=== PATIENT | male | born 2000 | race African-American/Black ===

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

== ENCOUNTER 2019-06-05 01:08 | Emergency (ER) | payer MEDICAID, OTHER ==
[2019-06-05] MEDS ORDERED: IPRATROPIUM/ALBUTEROL 0.5-2.5 MG/3 ML AMPUL NEB ONE (02:29)
[2019-06-05] MEDS ORDERED: DEXAMETHASONE SOD PHOS INJ 10 MG/1 ML VIAL IM ONE (02:29)
--- NOTE | 2019-06-05 02:31 | ER Document Report ---
HPI - HPI Patient complains to provider of: shortness of breath Time Seen by Provider: 06/05/19 02:02 Pain Level: Denies Context: 18-year-old male with history of asthma presents to the emergency department with chief complaint of shortness of breath. Patient states that he has had difficulty breathing since Friday. Patient said that he would have wheezing, would use his inhaler and nebulizers, would have transient relief, and still have sensation of shortness of breath. Patient states that he recently came down with a cold. Patient denies any fevers or chills, denies any chest pain, denies any other symptoms. - EENT EENT: DENIES: Sore Throat, Ear Pain, Eye problems - NEURO Neurology: DENIES: Headache, Weakness, Vision blurred, Dizzinesss / Vertigo - CARDIOVASCULAR Cardiovascular: DENIES: Chest pain - RESPIRATORY Respiratory: REPORTS: Trouble Breathing. DENIES: Coughing - GASTROINTESTINAL Gastrointestinal: DENIES: Abdominal Pain, Black / Bloody Stools - URINARY Urinary: DENIES: Dysuria, Urgency, Frequency - REPRODUCTIVE Reproductive: DENIES: :, Postmenopausal, Abnormal bleeding / discharge - MUSCULOSKELETAL Musculoskeletal: DENIES: Extremity pain Past Medical History - Social History Smoking Status: Never Smoker Family History: Reviewed & Not Pertinent Patient has suicidal ideation: No Patient has homicidal ideation: No Pulmonary Medical History: Reports: Hx Asthma Renal/ Medical History: Denies: Hx Peritoneal Dialysis - Immunizations Immunizations up to date: Yes Hx Diphtheria, Pertussis, Tetanus Vaccination: Yes Vertical Provider Document - CONSTITUTIONAL Notes: PHYSICAL EXAMINATION: Reviewed vital signs and charting by RN GENERAL: Alert, interacts well. No acute distress. HEAD: Normocephalic, atraumatic. EYES: Pupils equal and round. Extraocular movements intact. ENT: Oral mucosa moist, tongue midline. NECK: Full range of motion. Trachea midline. LUNGS: Crackles in right upper lobe, all other lung carrion clear to auscultation. No respiratory distress. HEART: Regular rate and rhythm. No murmur ABDOMEN: soft, non-tender. No distention. Bowel sounds present EXTREMITIES: Moves all 4 extremities spontaneously. No edema, No cyanosis. PSYCH: Normal affect, normal mood. SKIN: Warm, dry, normal turgor. No rashes or lesions noted. - INFECTION CONTROL TRAVEL OUTSIDE OF THE [place] IN LAST 30 DAYS: No Course - Re-evaluation Re-evalutation: 06/05/19 03:45 Patient presents with a mild exacerbation of their baseline asthma. Mild wheezing at time of presentation but vitals do not show significant hypoxemia or tachypnea. No retractions. Patient did clinically improve after receiving nebulizers here in the emergency department. Chest x-ray without evidence of an acute pneumonia. Patient able to ambulate without any respiratory distress. Based on patient's overall reassuring assessment, I believe they are stable for outpatient management with steroids. I do not suspect an acute alternative pathology at this time based on history and exam including acute pulmonary embolus, ACS, pneumothorax, or aortic dissection. At this time will discharge with return precautions and follow-up recommendations. Verbal discharge instructions given a the bedside and opportunity for questions given. Medication warnings reviewed. Patient is in agreement with this plan and has verbalized understanding of return precautions and the need for primary care follow-up in the next 24-72 hours. - Vital Signs Vital signs: Temp Pulse Resp BP Pulse Ox 98.0 F 68 16 123/88 H 100 06/05/19 01:11 06/05/19 01:11 06/05/19 01:11 06/05/19 01:11 06/05/19 01:11 Discharge - Discharge Clinical Impression: Mild asthma exacerbation Condition: Good Disposition: HOME, SELF-CARE Additional Instructions: You were seen for an asthma exacerbation. Your symptoms improved with treatment here in the emergency department. However, it is very important that you return to the emergency department immediately if you began to have worsening difficulty breathing that does not respond to your normal home nebulizers. You are also being sent home on a five-day course of steroids that you should start taking tomorrow. Please also follow closely with your primary care physician. you should also return to emergency department if you develop fever greater than 101, persistent cough, persistent vomiting, pass out, or any other symptoms that are concerning to you.
--- NOTE | 2019-06-05 03:34 | RADIOLOGY REPORT (SQ) ---
EXAM DESCRIPTION: XR CHEST 1 VIEW COMPLETED DATE/TME: 06/05/2019 02:30 CLINICAL HISTORY: 18 years Male, crackles RUL COMPARISON:Jan 11 2016 NUMBER OF VIEWS/TECHNIQUE: 1/AP FINDINGS: Increased lung volume, clear parenchyma, normal cardiac silhouette, and intact bony thorax. IMPRESSION: No acute cardiopulmonary findings.
[2019-06-05] MEDS ORDERED: ALBUTEROL SULFATE HFA (90 MCG/PUFF) 8 GM MDI (1 MDI/ER DISP) IH ONE (03:48)
[2019-06-05 04:25] VITALS: BP 128/73
--- NOTE | 2019-06-06 10:35 | EKG REPORT ---
SEVERITY:- NORMAL ECG - SINUS RHYTHM : Confirmed by: Mirian Porter 06-Jun-2019 10:34:52
== END 2019-06-05 04:25 | disposition home or self-care (01) ==
LOC: ER 01:08
DX: J45.901 Unspecified asthma with (acute) exacerbation (principal); Z79.899 Other long term (current) drug therapy
CPT/HCPCS: 93005; 94640; 99285; 96372; 71045; 93010; J1100; J7620

== ENCOUNTER 2019-09-01 10:32 | Emergency (ER) | payer MEDICAID ==
[2019-09-01 10:46] VITALS: BP 117/89
[2019-09-01] MEDS ORDERED: DEXAMETHASONE 4 MG TABLET PO ONE (11:12)
--- NOTE | 2019-09-01 11:17 | ER Document Report ---
ED General - General Chief Complaint: Asthma Exacerbation Stated Complaint: CONGESTION/HEADACHE/ASTHMA Time Seen by Provider: 09/01/19 10:49 Notes: HPI: She has a 18-year-old male with past medical history of asthma who presents today with the onset around 3 days ago some runny nose, congestion, and a nonproductive cough. Patient has a history of asthma. He has an albuterol inhaler. Patient denies any fevers, vomiting, sore throat, difficulty swallowing, abdominal pain, or diarrhea. ROS: See HPI All other review of systems reviewed and otherwise negative Reviewed vital signs and nursing note as charted by RN. PHYSICAL EXAM: CONSTITUTIONAL: Alert and interactive with no obvious tachypnea or retractions present HEAD: Normocephalic; atraumatic EYES: PERRL; Conjunctivae clear, sclerae non-icteric ENT: Normal nose; nonpurulent nasal rhinorrhea; moist mucous membranes; pharynx without lesions noted NECK: Supple without meningismus; non-tender; no cervical lymphadenopathy, no masses CARD: Regular rate and rhythm; no murmurs; symmetric distal pulses RESP: Normal chest excursion without splinting or tachypnea; breath sounds clear and equal bilaterally; no wheezes, no rhonchi, no rales ABD: Nontender to palpation : No apparent lesions present BACK: The back appears normal EXT: Normal ROM in all joints; non-tender to palpation; no edema SKIN: No acute lesions noted NEURO: Patient moves all 4 extremities with no swelling or erythema TRAVEL OUTSIDE OF THE [place] IN LAST 30 DAYS: No - Related Data Allergies/Adverse Reactions: No Known Allergies Allergy (Verified 09/01/19 11:06) Past Medical History - Social History Smoking Status: Never Smoker Frequency of alcohol use: None Drug Abuse: None Family History: Reviewed & Not Pertinent Patient has homicidal ideation: No Pulmonary Medical History: Reports: Hx Asthma Renal/ Medical History: Denies: Hx Peritoneal Dialysis - Immunizations Immunizations up to date: Yes Hx Diphtheria, Pertussis, Tetanus Vaccination: Yes Physical Exam - Vital signs Vitals: Temp Pulse Resp BP Pulse Ox 99.4 F 89 16 117/89 H 99 09/01/19 10:45 09/01/19 10:45 09/01/19 10:45 09/01/19 10:45 09/01/19 10:45 Course - Re-evaluation Re-evalutation: 09/01/19 11:17 Given the history and physical examination in this very well-appearing male in no acute distress, with vital signs as recorded, no wheezing on exam, no calf pain or leg swelling, afebrile, with nasal congestion and cough, we will provide a dose of Decadron and obtain an x-ray of the chest as well as cover testing. Patient understand strict return precautions as well as quarantine for COVID results. Patient looks extremely well and I do not believe any duo nebulizers are necessary at this moment. Patient does have a primary care physician. 09/01/19 12:18 X-ray of the chest as recorded. Patient still looks excellent. Patient will be discharged home with strict return precautions and follow-up with the primary care physician for further assessment and treatment. Patient has his albuterol inhaler. We have provided a 10 mg dose of Decadron. COVID testing has been sent and the patient understands quarantine instructions. - Vital Signs Vital signs: Temp Pulse Resp BP Pulse Ox 99.4 F 89 16 117/89 H 99 09/01/19 10:46 09/01/19 10:45 09/01/19 10:45 09/01/19 10:45 09/01/19 10:45 Discharge - Discharge Clinical Impression: Nose congestion, Cough Condition: Good Disposition: HOME, SELF-CARE Instructions: COVID-19 Guidance for Persons Under Investigation Additional Instructions: Come back immediately for any worsening cough, chest pain, leg swelling, difficulty breathing, or any other acute problems. Please take 2 puffs of albuterol inhaler every 4 hours for the next 48 hours and every 6 hours as needed after that. Please follow-up with your primary care physician as instructed. Please make sure that you continue self until COVID testing has resulted.
[2019-09-01] MEDS ORDERED: IBUPROFEN 600 MG TABLET PO ONE (11:18)
--- NOTE | 2019-09-01 12:04 | RADIOLOGY REPORT (SQ) ---
EXAM DESCRIPTION: CHEST SINGLE VIEW IMAGES COMPLETED DATE/TIME: 09/01/2019 11:43 am REASON FOR STUDY: 36; Wheezing and cough COMPARISON: 06/05/2019 EXAM PARAMETERS: NUMBER OF VIEWS: One view. TECHNIQUE: Single frontal radiographic view of the chest acquired. RADIATION DOSE: NA LIMITATIONS: None. FINDINGS: LUNGS AND PLEURA: No opacities, masses or pneumothorax. No pleural effusion. MEDIASTINUM AND HILAR STRUCTURES: No masses. Contour normal. HEART AND VASCULAR STRUCTURES: Heart normal in size. Normal vasculature. BONES: No acute findings. HARDWARE: None in the chest. OTHER: No other significant finding. IMPRESSION: NO ACUTE RADIOGRAPHIC FINDING IN THE CHEST. TECHNICAL DOCUMENTATION: JOB ID: [id number] [employer]- All Rights Reserved Reading location - IP/workstation name: [email or web address]
== END 2019-09-01 12:28 | disposition home or self-care (01) ==
LOC: ER 10:32
DX: R09.81 Nasal congestion (principal); R05 Cough; R51 Headache; J45.909 Unspecified asthma, uncomplicated; Z20.828 Contact with and (suspected) exposure to other viral communicable diseases
CPT/HCPCS: 99283; 87635; 71045; J3490 ×2; C9803; J8540